=== PATIENT | male | born 1975 | race Caucasian/White ===

== ENCOUNTER → 2021-08-31 | Outpatient (CLI) | payer BC ==
[~2021-08-31] MED LIST: ALLEGRA-D 12 H1 EACH PO; PROAIR HFA8.5 GM IH; TUSSIONEX PENN473 ML PO; ZPAK PO
--- NOTE | 2021-09-20 21:03 | SLEEP ---
[address] [address] SLEEP STUDY REPORT Name: ARIA WORTHY Room: [facility]#: [id number] Admission: 08/31/21 Attend Phys: Pete Augustine MD Discharge: Date of : 77 Report #: [id number] THIS REPORT FOR: cc: Kathryn Gonzalez NP, Elizabeth NP Pervez, Adeel MD ~ DATE OF STUDY: 08/31/2021 SLEEP STUDY INDICATION FOR SLEEP STUDY: Daytime sleepiness and history of Guillain-Willis syndrome. INTERPRETATION: Total duration of the study is 459 minutes, out of which he was asleep for 274 minutes with an overall sleep efficiency of 59.7%. Sleep onset initially occurred 34 minutes after lying down in bed and REM onset was delayed to 347 minutes. N1 sleep duration is 36%, N2 duration is 48%, N3 duration is 11% and REM duration is 5%. We did record multiple sleep related respiratory events. These included 11 obstructive apneas in addition to 2 mixed apneas, 24 hypopneas and 25 respiratory effort-related arousals. Overall, apnea-hypopnea index is elevated to 14.7. Body position data indicates the patient was observed in the supine position for 203 minutes, the rest of the time the patient was either on the right side or prone. Events are more common in the supine position. Supine apnea-hypopnea index is 19.5. Mean heart rate was 67. There are no periodic limb movements recorded. Arousal index is elevated to 18.2. There are multiple desaturations recorded, but O2 saturation mostly remains at or above 90%. We did record O2 saturation less than 90% for 2.4 minutes during this sleep study. IMPRESSION: Obstructive sleep apnea with an apnea-hypopnea index of 14.7 with mild nocturnal hypoxemia as above. RECOMMENDATIONS: Considering the patient's history of Guillain-Willis syndrome, I would favor proceeding with a repeat sleep study for positive airway pressure titration rather than use of a CPAP auto-titrated device. This entire sleep study was reviewed by board certified sleep physician. <ELECTRONICALLY SIGNED> By: Pete Augustine MD 09/20/21 [id number] Augustine MD /nt
== END ==
LOC: M.SLEEPLAB 21:00
PROVIDERS: ATTEND Internal Medicine Critical Care Medicine
DX: G47.33 Obstructive sleep apnea (adult) (pediatric) (principal); R09.02 Hypoxemia; G61.0 Guillain-Barre syndrome; R40.0 Somnolence